=== PATIENT | male | born 1965 | race Caucasian/White ===

== ENCOUNTER 2020-04-01 11:07 | Inpatient (IN) ==
[~2020-04-01 11:07] MED LIST: Acetaminophen IV 1,000 MG/100 ML INFUS..BTL IVPB ONE; Famotidine 20 MG/2 ML VIAL IVP ONE; Ringers Solution, Lactated 1,000 ML IVC SCH
[2020-04-01] MEDS ORDERED: *HR* FentaNYL (PF) 100 MCG/2 ML VIAL ONE ×2 (11:13→13:08)
[2020-04-01] MEDS ORDERED: Ondansetron 4 MG/2 ML VIAL IVP ONE (11:34)
[2020-04-01] MEDS ORDERED: *HR* Promethazine 25 MG/ML VIAL IVP PRN (11:34)
[2020-04-01] MEDS ORDERED: *HR* OxyCODONE Immed Rel 5 MG TABLET PO PRN ×2 (11:34→15:10)
[2020-04-01] MEDS ORDERED: CeFAZolin Syr 2,000MG/20 ML 2,000 MG/20 ML SYRINGE IVPB ONE (12:10)
[2020-04-01] MEDS ORDERED: *HR* Midazolam HCl 2 MG/2 ML VIAL ONE (12:16)
[2020-04-01] MEDS ORDERED: *HR* Propofol 200 MG/20 ML VIAL IVP ONE (12:17)
[2020-04-01] MEDS ORDERED: Ondansetron 4 MG/2 ML VIAL ONE ×2 (12:18→13:08)
[2020-04-01] MEDS ORDERED: *HR* Succinylcholine 200 MG/10 ML VIAL IVP ONE (12:18)
[2020-04-01] MEDS ORDERED: Dexamethasone 4 MG/ML VIAL ONE ×2 (12:18→13:08)
[2020-04-01] MEDS ORDERED: Lidocaine -MPF 2% 2 ML VIAL ONE (12:18)
[2020-04-01] MEDS ORDERED: Vancomycin 1,000 MG VIAL ONE (12:35)
[2020-04-01] MEDS ORDERED: Ethanol\\Acetic Acid\\Na Ace\\Ben 1,000 ML IRRIG.SOLN IR ONE (12:36)
[2020-04-01] MEDS ORDERED: Ropivacaine/PF 0.5% 30 ML VIAL ONE (12:36)
[2020-04-01] MEDS ORDERED: *HR* Labetalol 20 MG/4 ML SYRINGE IVP PRN (14:36)
[2020-04-01] MEDS ORDERED: *HR* Labetalol 20 MG/4 ML SYRINGE IVP ONE (14:39)
[2020-04-01] MEDS ORDERED: Ringers Solution, Lactated 1,000 ML IVC SCH (15:10)
[2020-04-01] MEDS ORDERED: D5% in Water 1,000 ML IVC PRN (15:10)
[2020-04-01] MEDS ORDERED: Sennosides 8.6 MG TABLET PO PRN (15:10)
[2020-04-01] MEDS ORDERED: *HR* Dextrose 50 % in Water (Vial) 50 ML VIAL IVP PRN (15:10)
[2020-04-01] MEDS ORDERED: *HR* OxyCODONE/APAP 5/325 TABLET PO PRN (15:10)
[2020-04-01] MEDS ORDERED: Ondansetron 4 MG/2 ML VIAL IVP PRN (15:10)
[2020-04-01] MEDS ORDERED: Dextrose Gel 15 GM/37.5 ML TUBE PO PRN ×2 (15:10)
[2020-04-01] MEDS ORDERED: MOM Conc 10 ML UD.LIQ PO PRN (15:10)
[2020-04-01 16:27] LABS: Hematocrit 43.1 % (37.5-50.1); Hemoglobin 14.8 g/dL (12.9-16.9)
[2020-04-01] MEDS: Insulin LISPRO 300 UNITS/3 ML VIAL SQ SCH (17:07)
[2020-04-01] MEDS ORDERED: *HR* Enoxaparin 30 MG/0.3 ML SYRINGE SQ SCH (18:00)
[2020-04-01] MEDS: CeFAZolin 2 GM/120 ML BAG IVPB SCH (19:41)
[2020-04-01] MEDS ORDERED: Insulin LISPRO 300 UNITS/3 ML VIAL SQ SCH (21:00)
[2020-04-02 02:07] LABS: Hematocrit 40.4 % (37.5-50.1); Hemoglobin 13.9 g/dL (12.9-16.9)
[2020-04-02 02:21] LABS: BUN/Creatinine Ratio 14 (6-26); Blood Urea Nitrogen 13 mg/dL (6-20); Calcium 8.9 mg/dL (8.6-10.3); Carbon Dioxide 25 mEq/L (23-29); Chloride 101 mEq/L (98-107); Glucose 143 mg/dL (70-105); Osmolality,Calculated 283 (280-300); Potassium 4.1 mEq/L (3.5-5.1); Sodium 135 mEq/L (136-145); eGFR For African Americans > 60 (> 60); eGFR For Non-African Americans > 60 (> 60)
[2020-04-02] MEDS: CeFAZolin 2 GM/120 ML BAG IVPB SCH (06:02)
[2020-04-02] MEDS ORDERED: *HR* HYDROcodone/Acet 5/325 mg TABLET PO PRN (06:48)
[2020-04-02] MEDS: amLODIPine 5 MG TABLET PO SCH ×2 (07:32→11:41)
[2020-04-02] MEDS: Metoprolol XL (24 HR) Succ 50 MG TAB.ER.24H PO SCH ×2 (07:34→11:40)
[2020-04-02 07:37] VITALS: BP 125/78
[2020-04-02] MEDS: Insulin LISPRO 300 UNITS/3 ML VIAL SQ SCH (11:42)
== END 2020-04-02 12:02 | disposition home or self-care (01) | DRG 483 ==
LOC: SAMDAY 11:07 → 3NENU 15:11
PROVIDERS: ADMIT Orthopaedic Surgery; ATTEND Orthopaedic Surgery